=== PATIENT | female | born 1990 | race Caucasian/White ===

== ENCOUNTER 2017-12-26 14:43 | Emergency (ER) | payer BC ==
[~2017-12-26] VITALS: Ht 167.6 cm; Wt 68.1 kg
[2017-12-26 15:08] VITALS: BP 140/86
[2017-12-26] MEDS ORDERED: BCP PO (15:35)
[2017-12-26] MEDS ORDERED: AMPH15TA PO (15:35)
[2017-12-26] MEDS ORDERED: DIPH,PERTUSS(ACELL),TET VAC/PF 0.5 ML IM-VACC ONE ×2 (15:41→16:00)
[2017-12-26] MEDS ORDERED: LIDOCAINE-MPF 1%, 2ML ONE (15:41)
[2017-12-26] MEDS ORDERED: BUPIVACAINE 0.25% ONE (15:44)
[2017-12-26] MEDS ORDERED: LIDOCAINE-MPF 1%, 5ML INFIL ONE (16:00)
[2017-12-26] MEDS ORDERED: BACITRACIN ZINC OINT 500U/GM, 0.9 GM ONE (17:14)
== END 2017-12-26 18:20 | disposition home or self-care (01) ==
LOC: ED 16:09
DX: S61.212A Laceration without foreign body of right middle finger without damage to nail, initial encounter (principal); W23.1XXA Caught, crushed, jammed, or pinched between stationary objects, initial encounter; Y93.89 Activity, other specified; Y99.8 Other external cause status; Y92.009 Unspecified place in unspecified non-institutional (private) residence as the place of occurrence of the external cause
CPT/HCPCS: 12041; 90471; 90715; 99284